=== PATIENT | female | born 1970 | race Caucasian/White ===

== ENCOUNTER → 2017-01-06 | Outpatient (REF) | payer BC ==
[2017-01-06 12:16] LABS: ANION GAP 10 MEQ/L (8-16); BLOOD UREA NITROGEN 13 MG/DL (7-18); CALCIUM LEVEL 8.8 MG/DL (8.5-10.1); CARBON DIOXIDE LEVEL 28 MEQ/L (21-32); CHLORIDE LEVEL 104 MEQ/L (98-107); CHOLESTEROL LEVEL 200 MG/DL (<200); CREATININE FOR GFR 0.66 MG/DL (0.55-1.02); GLOMERULAR FILTRATION RATE > 60.0 (>58); GLUCOSE, FASTING 87 MG/DL (70-105); POTASSIUM SERUM 4.1 MEQ/L (3.5-5.1); SODIUM LEVEL 142 MEQ/L (136-145); TRIGLYCERIDES LEVEL 73 MG/DL (<150)
== END ==
LOC: M LABDRAW1 08:25
PROVIDERS: ATTEND Physician Assistant Medical
DX: Z83.3 Family history of diabetes mellitus (principal); Z13.220 Encounter for screening for lipoid disorders